=== PATIENT | female | born 1970 | race African-American/Black ===

== ENCOUNTER 2017-02-01 10:17 | Emergency (ER) | payer OTHER ==
[~2017-02-01] VITALS: Ht 175.3 cm; Wt 90.7 kg
[~2017-02-01 10:17] MED LIST: AMOXICILLIN500 MG PO; AMOXIL 875 MG875 MG PO; AMOXIL500 MG PO; AUGMENTIN 875 M1 TAB PO; AUGMENTIN 875-1 EACH PO; CIPRO500 M1 PO; CYCLOBENZAPRINE10 M1 PO; DILAUDID4 M1 PO; FLEXERIL10 MG PO; HYDROCODONE/ACE1 TA1 PO; IBUPROFEN600 M1 PO; IBUPROFEN800 M1 PO; IBUPROFEN800 MG PO; LABETALOL HCL200 M1; LABETALOL HCL200 M1 PO; LISINOPRIL-HYDR1 TA1; LISINOPRIL10 M1 PO; LOSARTAN POTAS100 MG PO; MOTRIN 600 MG600 MG PO; NAPROXEN500 M1 PO; NORVASC 5MG TAB5 MG PO; NORVASC5 M1 PO; PEN-VK500 MG PO; PENICILLIN V P500 MG PO; PERCOCET 325 MG1 TA2 PO; PERCOCET 5-3251 EACH PO; TRAMADOL50 MG PO; VOLTAREN50 MG PO; ZITHROMAX Z PA250 MG PO
--- NOTE | 2017-02-01 10:55 | ED NECK/BACK PAIN COMPLAINT ---
History of Present Illness General Chief Complaint: Female Urogenital Problems Stated Complaint: LFT BACK PAIN/URINARY ISSUES Source: patient Exam Limitations: no limitations Vital Signs & Intake/Output Vital Signs & Intake/Output Vital Signs Date Time Temp Pulse Resp B/P Pulse O2 O2 Flow FiO2 Ox Delivery Rate 02/01 1201 97.0 72 20 181/109 99 02/01 1126 84 198/88 ED Intake and Output 02/02 0000 02/01 1200 Intake Total 30 Output Total Balance 30 Intake, Oral 30 Patient 200 lb Weight Allergies Coded Allergies: NO KNOWN ALLERGIES (09/21/16) Reconcile Medications Amlodipine Besylate (Norvasc) 5 MG TABLET 1 TAB PO DAILY HTN (Reported) Amlodipine Besylate (Norvasc) 10 MG TABLET 1 TAB PO DAILY HTN Amoxicillin/Potassium Clav (Augmentin 875-125 Tablet) 875 MG-125 MG TABLET 1 TAB PO BID INFECTION Cyclobenzaprine HCl 10 MG TABLET 1 TAB PO TID PRN SPASM Hydromorphone HCl (Dilaudid) 4 MG TABLET 1 TAB PO Q6H PRN PAIN Labetalol HCl 200 MG TABLET 2 TAB PO BID HTN (Reported) Lisinopril 10 MG TABLET 1 TAB PO DAILY HEART (Reported) Losartan Potassium 100 MG TABLET 1 TAB PO DAILY BP (Reported) Methylprednisolone. (Medrol) 4 MG TAB.DS.PK 1 DP PO AD INFLAMMATION 6 on day 1 then reduce by one tablet daily until gone Naproxen 500 MG TABLET 1 TAB PO BID PRN PAIN TAKE WITH FOOD Triage Note: 46 Y/O FEMALE C/O L FLANK PAIN RADIATING DOWN INTO L THIGH. HX KIDNEY STONES ON R SIDE AND STATES THIS FEELS SIMILIAR. REPORTS "PRESSURE" WITH URINATION. TOOK 800MG MOTRIN APPROX 4 HOURS AGO WITH NO RELIEF Triage Nurses Notes Reviewed? yes Onset: Abrupt Duration: day(s): (2-3) Timing: multiple episodes today Quality/Severity: severe, radiation, sharpness Location: LEFT BUTTOCK Radiation: THIGH, KNEE Method of Injury: unknown Modifying Factors: movement, other (CHANGE IN POSITION) Associated Symptoms: MUSCLE STIFFNESS HPI: 46 female presents with left sided buttock pain radiating down her leg and knee for the past 2-3 days. Associated urinary frequency, pressure and hesitancy. No abdominal pain. History of renal stones but it feels dissimilar. Past History Travel History Traveled to [place] past 21 day No Medical History Any Pertinent Medical History? 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 No Review of Systems Review of Systems Constitutional: Denies: chills, fever. Eyes: Reports: no symptoms. Ears, Nose, Throat, Mouth: Reports: no symptoms. Respiratory: Denies: cough, short of breath. Cardiovascular: Denies: chest pain. Gastrointestinal/Abdominal: Reports: nausea. Denies: abdominal pain. Musculoskeletal: Reports: back pain. Skin: Reports: no symptoms. Neurological/Psychological: Reports: numbness, tingling. Denies: weakness. All Other Systems: Reviewed and Negative Physical Exam Physical Exam General Appearance: well developed/nourished, mild distress Head: atraumatic Eyes: Bilateral: PERRL, EOMI. Ears, Nose, Throat, Mouth: hearing grossly normal Neck: normal inspection, supple, full range of motion Respiratory: normal breath sounds Cardiovascular: regular rate/rhythm Peripheral Pulses: 2+ radial (R), 2+ radial (L) Gastrointestinal: soft, non-tender Back: normal inspection Extremities: normal range of motion Straight Leg Raising: Left: Pain at ____ degrees (60). Neurologic/Psych: no motor/sensory deficits, awake, alert, oriented x 3, normal mood/affect, ANTALGIC GAIT ABLE TO TOE WALK AND HEEL WALK Skin: intact, normal color, warm/dry Progress Differential Diagnosis: herniated disc, myofascial strain, pyelo/UTI, sciatica Plan of Care: Orders Procedure Date/time Status URINALYSIS 02/01 1023 Complete Current Medications Sig/Chad Start time Last Medication Dose Stop Time Status Admin Oxycodone/ 1 TAB ONCE ONE 02/01 1200 UNVr Acetaminophen 02/01 1201 (Percocet) Laboratory Tests 02/01/17 1027: Urinalysis LIGHT H, Urine Color YEL, Urine Clarity HAZY H, Urine pH 6.5, Ur Specific [place] >= 1.030, Urine Protein 30 H, Urine Ketones NEG, Urine Nitrite NEG, Urine Bilirubin NEG@ICTO, Urine Urobilinogen 0.2, Ur Leukocyte Esterase NEG , Ur Microscopic SEDIMENT EXAMINED, Urine RBC 1-3, Urine WBC 1-3 H, Ur Epithelial Cells MOD H, Urine Bacteria MOD H, Urine Mucus FEW, Urine Hemoglobin NEG, Urine Glucose NEG LEFT LEG STRAIGHT LEG RAIST POSITIVE AT 60 DEGREES NEURO EXAINATION INTACT DECADRON, TORADOL, ZOFRAN, NORVASC ORDERED. PATIENT DID NOT TAKE ANTIHYPERTENSIVES THIS MORNING PATIENT REPORTS MINIMAL RELIEF. PERCOCET ORDERED. I DISCUSSED THE NEED FOR OUTPATIENT FOLLOW UP WITH PCP AND NEED FOR PT. (AMANDA DIAL,MELLY) Departure Departure Time of Disposition: 1155 Disposition: HOME OR SELF CARE Condition: Stable Clinical Impression Primary Impression: Sciatica of left side Referrals: LITTLE DIAL,SP (PCP/Family) Additional Instructions: Taking the Norvasc, Medrol Dosepak, naproxen and and Flexeril as directed. Please follow-up with your primary care doctor outpatient to arrange for physical therapy should her symptoms persist. Return to the ER for worsening symptoms such as weakness, difficulty with bowel or bladder habits. Departure Forms: Customer Survey General Discharge Information Prescriptions: Current Visit Scripts Methylprednisolone. (Medrol) 1 DP PO AD #1 DP 6 on day 1 then reduce by one tablet daily until gone Amlodipine Besylate (Norvasc) 1 TAB PO DAILY #30 TAB Cyclobenzaprine HCl 1 TAB PO TID PRN SPASM #30 TAB Naproxen 1 TAB PO BID PRN PAIN #30 TAB TAKE WITH FOOD
[2017-02-01] MEDS ORDERED: MEDROL4 M2 PO (11:34)
[2017-02-01] MEDS ORDERED: NAPROXEN500 M2 PO (11:34)
[2017-02-01] MEDS ORDERED: NORVASC10 M1 PO (11:34)
[2017-02-01] MEDS ORDERED: CYCLOBENZAPRINE10 M1 PO (11:34)
[2017-02-01 12:01] VITALS: BP 181/109
== END 2017-02-01 12:22 ==
LOC: ERH 10:17
DX: M54.42 Lumbago with sciatica, left side (principal)
CPT/HCPCS: 81001; 96372; J1100; J1885; J3101

== ENCOUNTER 2017-11-23 03:21 | Emergency (ER) | payer OTHER ==
[~2017-11-23] VITALS: Ht 175.3 cm; Wt 79.4 kg
[~2017-11-23 03:21] MED LIST changes: +MEDROL4 M2 PO; +NAPROXEN500 M2 PO; +NORVASC10 M1 PO
--- NOTE | 2017-11-23 04:00 | ED INFLUENZA/URI COMPLAINT ---
History of Present Illness General Chief Complaint: Upper Respiratory Sx/Fever Stated Complaint: " MY THROAT IS BURNING" COUGH ? SINUS INFECTION Source: patient Exam Limitations: no limitations Vital Signs & Intake/Output Vital Signs & Intake/Output Vital Signs Date Time Temp Pulse Resp B/P B/P Pulse O2 O2 Flow FiO2 Mean Ox Delivery Rate 11/23 0402 99.4 84 20 128/75 100 Room Air Allergies Coded Allergies: No Known Allergies (07/14/17) Reconcile Medications Amlodipine Besylate 10 MG TABLET 1 TAB PO DAILY BP (Reported) Azithromycin (Zithromax) 250 MG TABLET 1 DP PO AD bronchitis 2 the first day followed by 1 for days 2-5.... to pharmacist... do not fill augmentin. Labetalol HCl 200 MG TABLET 2 TAB PO BID HTN (Reported) Lisinopril 10 MG TABLET 1 TAB PO DAILY HEART (Reported) Prednisolone 15 MG/5 ML SOLUTION 10 ML PO QDAY ASTHMA/bronchitis Promethazine HCl/Codeine (Promethazine-Codeine Syrup) 6.25 MG-10 MG/5 ML SYRUP 5-10 ML PO Q4-6 PRN cough one hundred twenty cc's, [id number] Triage Nurses Notes Reviewed? yes Onset: Gradual Duration: day(s):, waxing and waning Timing: recent history Severity: mild, moderate Prior Episodes/Possible Cause: occassional episodes Modifying Factors: Improves With: rest. Associated Symptoms: cough, nasal congestion, nasal drainage HPI: 47 yo woman h/o htn, presents with wet cough, sinus pressure, runny nose, body aches, sore throat for the past 2-3 days. She notes that she works at [employer] "and everyone there is sick." She is otherwise well. Past History Medical History Any Pertinent Medical History? 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 No Review of Systems Review of Systems Constitutional: Reports: no symptoms. EENTM: Reports: no symptoms. Respiratory: Reports: no symptoms. Cardiovascular: Reports: no symptoms. GI: Reports: no symptoms. Genitourinary: Reports: no symptoms. Musculoskeletal: Reports: no symptoms. Skin: Reports: no symptoms. Neurological/Psychological: Reports: no symptoms. Hematologic/Endocrine: Reports: no symptoms. Immunologic/Allergic: Reports: no symptoms. All Other Systems: Reviewed and Negative Physical Exam Physical Exam General Appearance: well developed/nourished, no apparent distress Head: atraumatic, normal appearance Eyes: Right: normal appearance. Ears, Nose, Throat: moist mucous membrane, pharyngeal erythema Neck: normal inspection, supple, full range of motion Respiratory: no respiratory distress, quiet respiration, lungs clear, rhonchi Cardiovascular: regular rate/rhythm Gastrointestinal: normal bowel sounds, soft, non-tender, no organomegaly Back: normal inspection, normal range of motion Extremities: normal inspection, normal capillary refill, normal range of motion, no edema Neurologic/Psych: no motor/sensory deficits, awake, alert, oriented x 3 Skin: intact, normal color, warm/dry Core Measures Sepsis Present: No Sepsis Focused Exam Completed? No Progress Differential Diagnosis: pharyngitis, sinusitis Plan of Care: Current Medications Sig/Chad Start time Last Medication Dose Stop Time Status Admin Ibuprofen 600 MG ONCE ONE 11/23 444 [facility] 11/23 (Motrin) 11/23 445 0504 Prednisone 40 MG ONCE ONE 11/23 444 UN 11/23 11/23 0446 0504 Initial ED EKG: none Departure Departure Disposition: HOME OR SELF CARE Condition: Stable Clinical Impression Primary Impression: Bronchitis Secondary Impressions: URI (upper respiratory infection) Referrals: Patient Has No Primary Care Dr (PCP/Family) Departure Forms: Customer Survey General Discharge Information Prescriptions: Current Visit Scripts Prednisolone 10 ML PO QDAY #30 ML Promethazine HCl/Codeine (Promethazine-Codeine Syrup) 5-10 ML PO Q4-6 PRN cough #120 ML one hundred twenty cc's, [id number] Azithromycin (Zithromax) 1 DP PO AD #6 TAB 2 the first day followed by 1 for days 2-5.... to pharmacist... do not fill augmentin. Comments well appearing in ED, safe for discharge... will give steroids/abx/supportive medications... close follow up advised.
[2017-11-23 04:02] VITALS: BP 128/75
[2017-11-23] MEDS ORDERED: AMLODIPINE BESY10 M1 PO (04:05)
[2017-11-23] MEDS ORDERED: PREDNISOLO15 MG/5 M4 PO (04:44)
[2017-11-23] MEDS ORDERED: PROMETHAZINE-C118 ML PO (04:44)
[2017-11-23] MEDS ORDERED: AUGMENTIN 875-1 EACH PO (04:46)
[2017-11-23] MEDS ORDERED: ZITHROMAX250 M2 PO (05:02)
== END 2017-11-23 05:07 ==
LOC: ERH 03:21
DX: J40 Bronchitis, not specified as acute or chronic (principal); J06.9 Acute upper respiratory infection, unspecified

== ENCOUNTER 2018-03-29 04:51 | Emergency (ER) | payer OTHER ==
[~2018-03-29] VITALS: Ht 175.3 cm; Wt 98.0 kg
[~2018-03-29 04:51] MED LIST changes: +AMLODIPINE BESY10 M1 PO; +PREDNISOLO15 MG/5 M4 PO; +PROMETHAZINE-C118 ML PO; +ZITHROMAX250 M2 PO
--- NOTE | 2018-03-29 05:04 | ED GENERAL ADULT ---
History of Present Illness General Chief Complaint: General Adult Stated Complaint: BODYACHES, RED ITCHY EYES Source: patient, old records Exam Limitations: no limitations Vital Signs & Intake/Output Vital Signs & Intake/Output Vital Signs Date Time Temp Pulse Resp B/P B/P Pulse O2 O2 Flow FiO2 Mean Ox Delivery Rate 03/29 0505 98.7 87 16 184/102 97 Room Air Room Air Allergies Uncoded Allergies: "WHITE PENICILLIN" (Mild, NAUSEA 11/23/17) Reconcile Medications Amlodipine Besylate 10 MG TABLET 1 TAB PO DAILY BP (Reported) Azithromycin (Zithromax) 250 MG TABLET 1 DP PO AD bronchitis 2 the first day followed by 1 for days 2-5.... to pharmacist... do not fill augmentin. Labetalol HCl 200 MG TABLET 2 TAB PO BID HTN (Reported) Lisinopril 10 MG TABLET 1 TAB PO DAILY HEART (Reported) Prednisolone 15 MG/5 ML SOLUTION 10 ML PO QDAY ASTHMA/bronchitis Promethazine HCl/Codeine (Promethazine-Codeine Syrup) 6.25 MG-10 MG/5 ML SYRUP 5-10 ML PO Q4-6 PRN cough one hundred twenty cc's, [id number] Triage Nurses Notes Reviewed? yes HPI: Patient presents with a three-day history of diffuse myalgias and red eyes. She states the muscle aches done in her neck in court on her shoulders but also both hips. The pain is been constant for the past 3 days. Patient kept hoping that the pain would go away but they didn't. She denies any fever or chills. There is no discharge from eyes. There is no blurry vision. There is no nausea or vomiting. There is no anorexia. She rates the pain as a 7 out of 10. Past History Travel History Traveled to [place] past 21 day No Medical History Any Pertinent Medical History? 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 No Review of Systems Review of Systems Constitutional: Reports: no symptoms. EENTM: Reports: see HPI. Respiratory: Reports: no symptoms. Cardiovascular: Reports: no symptoms. GI: Reports: no symptoms. Genitourinary: Reports: no symptoms. Musculoskeletal: Reports: see HPI, muscle pain. Skin: Reports: no symptoms. Neurological/Psychological: Reports: no symptoms. Hematologic/Endocrine: Reports: no symptoms. Immunologic/Allergic: Reports: no symptoms. All Other Systems: Reviewed and Negative Physical Exam Physical Exam General Appearance: well developed/nourished, alert, awake, anxious, moderate distress Head: atraumatic, normal appearance Eyes: Bilateral: PERRL, EOMI. Ears, Nose, Throat: normal pharynx, normal ENT inspection, hearing grossly normal Neck: normal inspection, supple, full range of motion Respiratory: normal breath sounds, chest non-tender, no respiratory distress, lungs clear Cardiovascular: regular rate/rhythm, normal peripheral pulses Gastrointestinal: normal bowel sounds, soft, non-tender, no organomegaly Back: normal inspection, normal range of motion, O CVA TENDERNESS Extremities: normal inspection, normal capillary refill, normal range of motion, no edema Neurologic/Psych: no motor/sensory deficits, awake, alert, oriented x 3, normal gait, normal mood/affect Skin: intact, normal color, warm/dry Core Measures ACS in differential dx? No CVA/TIA Diagnosis: No Sepsis Present: No Sepsis Focused Exam Completed? No Progress Differential Diagnoses I considered the following diagnoses in my evaluation of the patient: [VIRAL MYOCYTIS, PMR, MYALGIAS] Plan of Care: Orders Procedure Date/time Status [facility] SED RATE 03/29 0502 Complete COMPREHENSIVE METABOLIC PANEL 03/29 0502 Complete CREATINE PHOSPHOKINASE 03/29 0502 Complete CBC WITHOUT DIFFERENTIAL 03/29 0502 Complete Laboratory Tests 03/29/18 0511: Anion Gap 13, Estimated GFR > 60, BUN/Creatinine Ratio 15.7, Glucose 102 H, Calcium 9.2, Total Bilirubin 0.3, AST 17, ALT 25, Alkaline Phosphatase 141 H, Creatine Kinase 96, Total Protein 7.7, Albumin 4.2, Globulin 3.5, Albumin/ Globulin Ratio 1.2, CBC w Diff NO MAN DIFF REQ, RBC 4.60, MCV 80.8 L, MCH 25.8 L, MCHC 32.0 L, RDW 15.5 H, MPV 6.9 L, Gran % 72.0, Lymphocytes % 19.9 L, Monocytes % 5.9, Eosinophils % 1.7, Basophils % 0.5, Absolute Granulocytes 6.9 H, Absolute Lymphocytes 1.9, Absolute Monocytes 0.6, Absolute Eosinophils 0.2, Absolute Basophils 0, ESR Westergren 56 H Initial ED EKG: none Departure Departure Disposition: HOME OR SELF CARE Condition: Stable Clinical Impression Primary Impression: Myalgia Referrals: Shantanu Fournier MD (PCP/Family) Additional Instructions: YOU HAVE SYMPTOMS CONSISTENT WITH POLYMYALGIA RHEUMATICA. THE TREATMENT FOR THIS ISHIGH DOSES OF STEROIDS. TAKE THE PREDNISONE PRESCRIBED. YOU CAN NOT STOP THESE SUDDENLY SO FOLLOW UP WITH YOUR REGULAR DOCTOR AND/OR THE AUTO SERVICE MECHANIC RETURN IF SYMPTOMS WORSEN OR FOR ANY CONCERNS. Departure Forms: Customer Survey General Discharge Information Prescriptions: Current Visit Scripts Prednisone 1 TAB PO DAILY #30 TAB Cyclobenzaprine HCl 1 TAB PO Q8P #20 TAB Ibuprofen 1 TAB PO TID PRN PAIN #20 TAB with food Critical Care Note Critical Care Note Critical Care Time: non-applicable
[2018-03-29 05:19] LABS: ABSOLUTE BASOPHIL COUNT 0 /CUMM (0.0-0.2); ABSOLUTE EOSINOPHIL COUNT 0.2 /CUMM (0.0-0.7); ABSOLUTE GRANULOCYTE CT 6.9 /CUMM (1.4-6.5); ABSOLUTE LYMPH COUNT 1.9 /CUMM (1.2-3.4); ABSOLUTE MONOCYTE COUNT 0.6 /CUMM (0.10-0.60); BASOPHIL % 0.5 % (0.0-2.0); EOSINOPHIL % 1.7 % (0-5); HEMATOCRIT 37.2 % (37-47); MEAN CORPUSCULAR HGB 25.8 PG (27.0-31.0); MEAN CORPUSCULAR VOLUME 80.8 FL (81.0-99.0); MEAN PLATELET VOLUME 6.9 FL (7.4-10.4); PLATELET COUNT 379 /CUMM (130-400); RBC DISTRIBUTION WIDTH 15.5 % (11.5-14.5); WHITE BLOOD CELL COUNT 9.5 /CUMM (4.8-10.8)
[2018-03-29] MEDS ORDERED: PREDNISONE50 M1 PO (06:35)
[2018-03-29] MEDS ORDERED: IBUPROFEN600 M1 PO (06:36)
[2018-03-29] MEDS ORDERED: CYCLOBENZAPRINE10 M1 PO (06:36)
[2018-03-29 06:46] VITALS: BP 164/92
== END 2018-03-29 06:48 ==
LOC: ERH 04:51
PROVIDERS: Emergency Medicine
DX: M79.1 Myalgia (principal)
CPT/HCPCS: 96372; J1885

== ENCOUNTER 2018-07-25 04:40 | Emergency (ER) | payer OTHER ==
[~2018-07-25] VITALS: Ht 175.3 cm; Wt 72.6 kg
[~2018-07-25 04:40] MED LIST changes: +PREDNISONE50 M1 PO
[2018-07-25 04:52] VITALS: BP 160/96
--- NOTE | 2018-07-25 04:59 | ED GENERAL ADULT ---
History of Present Illness General Chief Complaint: General Adult Stated Complaint: " I HAVE A STUFFY NOSE AND IT WON'T STOP RUNNING" Source: patient Exam Limitations: no limitations Vital Signs & Intake/Output Vital Signs & Intake/Output Vital Signs Date Time Temp Pulse Resp B/P B/P Pulse O2 O2 Flow FiO2 Mean Ox Delivery Rate 07/253 Room Air 07/25 452 97.8 77 19 160/96 100 Room Air Allergies Uncoded Allergies: "WHITE PENICILLIN" (Mild, NAUSEA 11/23/17) Reconcile Medications Amlodipine Besylate 10 MG TABLET 1 TAB PO DAILY BP (Reported) Amoxicillin 500 MG TABLET 1 TAB PO BID pharyngitis Ibuprofen 600 MG TABLET 1 TAB PO TID PRN PAIN with food Labetalol HCl 200 MG TABLET 2 TAB PO BID HTN (Reported) Lisinopril 10 MG TABLET 1 TAB PO DAILY HEART (Reported) Methylprednisolone. (Medrol) 4 MG TAB.DS.PK 1 DP PO AD pharyngitis 6 on day 1 then reduce by one tablet daily until gone Prednisolone 15 MG/5 ML SOLUTION 10 ML PO QDAY ASTHMA/bronchitis Prednisone 50 MG TABLET 1 TAB PO DAILY PMR Promethazine HCl/Codeine (Promethazine-Codeine Syrup) 6.25 MG-10 MG/5 ML SYRUP 5-10 ML PO Q4-6 PRN cough one hundred twenty cc's, [id number] Triage Note: PT STATES "MY NOSE WON'T STOP RUNNING. I HAVE A STUFFY NOSE AND MY THROAT IS STARTING TO HURT. I HAVE A LUMP ON THE SIDE OF MY NECK TOO." +SWELLING UNDER LEFT EAR. PT STATES THIS STARTED ON TUESDAY. PT DENIES ANY OTHER COMPLAINTS. RESPIRATIONS NON-LABORED. SKIN WARM/DRY. A&OX3. Triage Nurses Notes Reviewed? yes HPI: 47-year-old female presents with 2 days of stuffy nose sore throat and stuffiness in the left ear. Patient also notes a swelling of the left side of her neck behind the ear. Negative for sick contacts. Negative for itchy watery eyes, sneezing, cough, body aches, chills. Patient states that she just feels bad. Past History Travel History Traveled to [place] past 21 day No Medical History Any Pertinent Medical History? 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 No Review of Systems Review of Systems Constitutional: Reports: no symptoms, see HPI. EENTM: Reports: no symptoms. Respiratory: Reports: no symptoms. Cardiovascular: Reports: no symptoms. GI: Reports: no symptoms. Genitourinary: Reports: no symptoms. Musculoskeletal: Reports: no symptoms. Skin: Reports: no symptoms. Neurological/Psychological: Reports: no symptoms. Hematologic/Endocrine: Reports: no symptoms. Immunologic/Allergic: Reports: no symptoms. All Other Systems: Reviewed and Negative Physical Exam Physical Exam General Appearance: well developed/nourished, comfortable Comments: Gen.: Well-nourished, well-developed, no acute respiratory distress. Head: Normocephalic, atraumatic. Eyes: Normal inspection bilaterally Ears: Normal inspection bilaterally Nose: Normal inspection Face: Nontender to percussion Throat/mouth : Moist mucosa , positive for pharyngeal erythema and exudates. Negative for tonsillar swelling. Neck: Supple, full range of motion Heart: Regular rate and rhythm, no murmurs rubs or gallops Lungs: Clear to auscultation bilaterally with normal air entry Chest: Nontender Back: Normal range of motion Abdomen: Soft, nontender, nondistended, normal bowel sounds, no organosplenomegaly Extremities: Normal range of motion grossly, equal radial pulses, no cyanosis clubbing or edema Neurologic: Cranial nerves grossly intact, speech is clear Skin: warm and dry Psychiatric: Calm, cooperative, no apparent delusions or hallucinations Lymphatic: Positive for posterior auricular lymphadenopathy left side Core Measures ACS in differential dx? No CVA/TIA Diagnosis: No Sepsis Present: No Sepsis Focused Exam Completed? No Progress Differential Diagnoses I considered the following diagnoses in my evaluation of the patient: Pharyngitis versus otitis versus sinusitis Plan of Care: Due to history and physical further evaluation Gabriel this time. Positive Centor criteria. Initial ED EKG: none Departure Departure Disposition: HOME OR SELF CARE Condition: Stable Clinical Impression Primary Impression: Pharyngitis Qualifiers: Pharyngitis/tonsillitis etiology: unspecified etiology Qualified Code: J02.9 - Acute pharyngitis, unspecified Referrals: Shantanu Fournier MD (PCP/Family) Departure Forms: Customer Survey General Discharge Information Prescriptions: Current Visit Scripts Amoxicillin 1 TAB PO BID #20 TAB Methylprednisolone. (Medrol) 1 DP PO AD #1 DP 6 on day 1 then reduce by one tablet daily until gone Comments Please note that there might be incidental findings in your evaluation that are unrelated to the current emergency department visit. Please notify your primary care doctor about this emergency department visit in order to obtain and review all of the testing performed so that these incidental findings can be monitored as needed. If you had an x-ray performed, please understand that some fractures may not be seen on the initial set of x-rays. If your symptoms persist you might need a repeat set of x-rays to check for such a fracture. If you had a laceration evaluated, please understand that foreign bodies such as glass or wood may not be visible to the naked eye or on plain x-rays. If the wound becomes red, swollen, increasingly more painful or if there is any drainage from the wound, please have it reevaluated by a physician for the possibility of a retained foreign body. If you're unable to follow up as outlined in the discharge instructions please return to the emergency department. Critical Care Note Critical Care Note Critical Care Time: non-applicable
[2018-07-25] MEDS ORDERED: AMOXICILLIN500 M3 PO (05:03)
[2018-07-25] MEDS ORDERED: MEDROL4 M2 PO (05:03)
== END 2018-07-25 05:12 ==
LOC: ERH 04:40
DX: J02.9 Acute pharyngitis, unspecified (principal); F17.210 Nicotine dependence, cigarettes, uncomplicated; I10 Essential (primary) hypertension